=== PATIENT | female | born 1950 | race Caucasian/White ===

== ENCOUNTER 2020-10-04 13:44 | Inpatient (IN) | payer OTHER ==
[~2020-10-04] VITALS: Ht 170.2 cm; Wt 96.0 kg
[2020-10-04] MEDS ORDERED: ETOMIDATE (2MG/ML) 20ML VIAL IV ONE ×2 (14:35→14:45)
[2020-10-04] MEDS ORDERED: SUCCINYLCHOLINE CHLORIDE 20 MG/ML 10ML VIAL IV ONE ×2 (14:36→14:45)
[2020-10-04] MEDS ORDERED: cefTRIAXone 1GM/50ML D5W 50 ML IV ONE (14:45)
[2020-10-04] MEDS ORDERED: DexAMETHasone SOD PHOS 10MG/1ML VIAL INJ IV ONE (14:45)
[2020-10-04] MEDS: MIDAZOLAM DRIP 50 mg/50mL 50 ML IV SCH (15:06)
[2020-10-04 15:35] LABS: Albumin 2.3 g/dL (3.4-5.0); Anion Gap 15 (5-15); Blood Urea Nitrogen 33 mg/dL (7-18); Calcium 8.4 mg/dL (8.5-10.1); Carbon Dioxide 16 mmol/L (21-32); Chloride 110 mmol/L (98-107); Sodium 141 mmol/L (136-145)
[2020-10-04] MEDS ORDERED: NOREPINEPHRINE 8 MG/250ML KIT 250 ML IV ONE (15:37)
[2020-10-04 15:40] LABS: Alanine Aminotransferase 48 U/L (13-56); Alkaline Phosphatase 162 U/L (45-117); Aspartate Aminotransferase 49 U/L (15-37); BUN/Creatinine Ratio 12.7; Bilirubin, Total 0.8 mg/dL (0.2-1.0); GFR African American 24 mL/min; GFR Non-African American 20 mL/min; Total Protein 7.3 g/dL (6.4-8.2)
[2020-10-04 15:41] LABS: Lactic Acid w/Reflex 9.4 mmol/L (0.4-2.0)
[2020-10-04 15:53] LABS: CRP High Sensitivity 15.7 mg/dL (< 0.3)
[2020-10-04 16:01] LABS: Glucose 402 mg/dL (74-106)
[2020-10-04] MEDS: NOREPINEPHRINE 8 MG/250ML KIT 250 ML IV SCH (16:16)
[2020-10-04 17:19] LABS: Basophils # (auto) 0 10 ^3/uL (0-0.2); Eosinophils # (auto) 0 10 ^3/uL (0-0.8); Eosinophils % (auto) 0.1 % (0.0-7.0); Hemoglobin 13.5 g/dL (12.2-16.2); Mean Corpuscular Volume 103.2 fL (80.0-100.0)
[2020-10-04 17:20] LABS: Basophils % (auto) 0.3 % (0.0-2.0); Hematocrit 41.8 % (36.0-46.0); Lymphocytes # (auto) 1.2 10 ^3/uL (0.4-5.4); Lymphocytes % (auto) 8.6 % (10.0-50.0); Mean Corpuscular Hemoglobin 33.2 pg (28.0-32.0); Mean Corpuscular Hgb Conc. 32.2 g/dL (32.0-36.0); Monocytes # (auto) 0.4 10 ^3/uL (0-1.3); Neutrophils # (auto) 11.8 10 ^3/uL (1.6-8.6); Nucleated Red Blood Cells % 4.5 %; Red Blood Cells 4.05 10^6/uL (4.0-5.20); Red Cell Distribution Width 16.5 % (11.8-14.3); White Blood Cell 13.4 10^3/uL (4.4-10.8)
[2020-10-04] MEDS ORDERED: INSULIN LANTUS (GLARGINE) 1 /0.01ml (100units/ml) SC ONE (17:45)
[2020-10-04] MEDS ORDERED: MORPHINE SULFATE INJECTION 2 MG/ML SYRG IV PRN ×3 (17:45→22:30)
[2020-10-04] MEDS ORDERED: NITROGLYCERIN 0.4 MG SL TAB SL PRN ×2 (17:45→22:30)
[2020-10-04] MEDS ORDERED: CHOL20007 PO (18:36)
[2020-10-04] MEDS ORDERED: LOSA-39 PO (18:36)
[2020-10-04] MEDS ORDERED: METH5T PO (18:36)
[2020-10-04] MEDS ORDERED: NYS15TP TOP (18:36)
[2020-10-04] MEDS ORDERED: NAP500T PO (18:36)
[2020-10-04] MEDS ORDERED: ASPI81CH49 PO (18:36)
[2020-10-04] MEDS ORDERED: ASCO500T11 PO (18:36)
[2020-10-04] MEDS ORDERED: ARIP5TAB15 PO (18:36)
[2020-10-04] MEDS ORDERED: FERR325T20 PO (18:36)
[2020-10-04] MEDS ORDERED: METO-289 PO (18:36)
[2020-10-04] MEDS ORDERED: DONETAB6 PO (18:36)
[2020-10-04] MEDS ORDERED: TOLT1CAP29 PO (18:36)
[2020-10-04] MEDS ORDERED: GLAT20KI SC (18:36)
[2020-10-04] MEDS ORDERED: VORT1TAB3 PO (18:36)
[2020-10-04 18:45] VITALS: BP 114/64
[2020-10-04 22:30] VITALS: BP 131/71
[2020-10-04] MEDS ORDERED: ACETAMINOPHEN 500 MG TAB PO PRN (22:30)
[2020-10-04] MEDS ORDERED: ALUM & MAG HYDROX-SIMETH LIQ(MAALOX) 30 ML PO PRN (22:30)
[2020-10-04] MEDS ORDERED: PIPERACILLIN-TAZOB 3.375GM 100 ML IV ONE (22:30)
[2020-10-04] MEDS ORDERED: LORazepam 0.5 MG TAB PO PRN (22:30)
[2020-10-04] MEDS ORDERED: ALBUTEROL SULF HFA 90MCG INH 200DOSE IN PRN (22:30)
[2020-10-04] MEDS ORDERED: REMDESIVIR PER PHARMACY 0 ML IV SCH (22:30)
[2020-10-04] MEDS: SODIUM CHLORIDE 0.9% 1,000 ML IV SCH (22:30)
[2020-10-04] MEDS ORDERED: VANCOMYCIN PER PHARMACY 0 MG IV SCH (22:30)
[2020-10-04] MEDS ORDERED: DEXTROSE (50%) 50ML SYRG IV PRN (22:30)
[2020-10-04] MEDS ORDERED: HYDROcodone-ACET 5/325MG TAB PO PRN (22:30)
[2020-10-04] MEDS ORDERED: ENOXAPARIN SOD 100 MG/1 ML SYRINGE SC ONE (22:30)
[2020-10-04] MEDS ORDERED: FUROSEMIDE 20 MG/2 ML VIAL IV ONE (22:30)
[2020-10-04] MEDS ORDERED: DOCUSATE SOD 100 MG CAP PO PRN (22:30)
[2020-10-04] MEDS ORDERED: ONDANSETRON HCL 4 MG/2 ML VIAL IV PRN (22:30)
[2020-10-04] MEDS ORDERED: VANCOMYCIN 1GM/250ML 250 ML IV ONE (23:00)
[2020-10-04 23:26] LABS: Basophils # (auto) 0 10 ^3/uL (0-0.2); Basophils % (auto) 0.4 % (0.0-2.0); Eosinophils # (auto) 0 10 ^3/uL (0-0.8); Hematocrit 39.7 % (36.0-46.0); Hemoglobin 13.2 g/dL (12.2-16.2); Lymphocytes % (auto) 8.1 % (10.0-50.0); Mean Corpuscular Hemoglobin 33.2 pg (28.0-32.0); Mean Corpuscular Hgb Conc. 33.1 g/dL (32.0-36.0); Mean Corpuscular Volume 100.2 fL (80.0-100.0); Monocytes # (auto) 0.4 10 ^3/uL (0-1.3); Monocytes % (auto) 3.5 % (0.0-12.0); Neutrophils # (auto) 11.1 10 ^3/uL (1.6-8.6); Nucleated Red Blood Cells % 2.1 %; Red Blood Cells 3.96 10^6/uL (4.0-5.20); Red Cell Distribution Width 16.6 % (11.8-14.3); White Blood Cell 12.6 10^3/uL (4.4-10.8)
[2020-10-04] MEDS ORDERED: FUROSEMIDE 40 MG/4 ML VIAL ONE (23:33)
[2020-10-04 23:44] LABS: Albumin 2.3 g/dL (3.4-5.0); Calcium 8.1 mg/dL (8.5-10.1); Magnesium 2.7 mg/dL (1.6-2.6); Potassium 3.7 mmol/L (3.5-5.1)
[2020-10-04 23:49] LABS: Cholesterol 125 mg/dL (< 200); HDL Cholesterol 31 mg/dL (40-59); LDL Cholesterol 83 mg/dL (< 100); Triglycerides 163 mg/dL (< 150)
[2020-10-04 23:53] LABS: Bilirubin, Total 0.5 mg/dL (0.2-1.0); CRP High Sensitivity 16.5 mg/dL (< 0.3); Total Protein 7.1 g/dL (6.4-8.2)
[2020-10-05] MEDS ORDERED: PIPERACILLIN-TAZOB 3.375GM 100 ML IV SCH
[2020-10-05 02:00] VITALS: BP 130/73
[2020-10-05] MEDS ORDERED: PIPERACILLIN-TAZOB 2.25GM 50 ML IV SCH (02:00)
[2020-10-05 06:08] VITALS: BP 166/90
[2020-10-05] MEDS: BUDESONIDE (INHALATION) 180 MCG IH IN SCH ×2 (06:47→22:00)
[2020-10-05] MEDS ORDERED: FUROSEMIDE 40 MG/4 ML VIAL ONE (06:49)
[2020-10-05] MEDS: FUROSEMIDE 20 MG/2 ML VIAL IV SCH ×2 (06:56→18:17)
[2020-10-05] MEDS: FERROUS SULFATE 300 MG/5 ML ORAL LIQ PO SCH ×3 (06:56→21:52)
[2020-10-05] MEDS: ACCU-CHEK COMFORT CURVE STRIP VI SCH ×4 (07:00→21:57)
[2020-10-05] MEDS: InsuLIN REG 1unit/0.01ml Soln (100units/ml) SC SCH ×4 (07:00→22:22)
[2020-10-05] MEDS: TOLTERODINE TARTRATE 1 MG TAB PO SCH (07:00)
[2020-10-05 08:23] LABS: Basophils # (auto) 0 10 ^3/uL (0-0.2); Basophils % (auto) 0.1 % (0.0-2.0); Eosinophils # (auto) 0 10 ^3/uL (0-0.8); Hematocrit 37.9 % (36.0-46.0); Hemoglobin 12.8 g/dL (12.2-16.2); Lymphocytes % (auto) 8.3 % (10.0-50.0); Mean Corpuscular Hemoglobin 33.7 pg (28.0-32.0); Mean Corpuscular Hgb Conc. 33.8 g/dL (32.0-36.0); Monocytes # (auto) 0.8 10 ^3/uL (0-1.3); Monocytes % (auto) 6.7 % (0.0-12.0); Neutrophils % (auto) 84.9 % (37.0-80.0); Nucleated Red Blood Cells % 0.6 %; Red Blood Cells 3.79 10^6/uL (4.0-5.20); White Blood Cell 11.7 10^3/uL (4.4-10.8)
[2020-10-05 08:43] LABS: INR 1.13 (0.9-1.15); Partial Thromboplastin Time 26.3 sec (23.0-31.2)
[2020-10-05 08:49] LABS: Potassium 3.4 mmol/L (3.5-5.1)
[2020-10-05 09:00] LABS: Albumin 2.3 g/dL (3.4-5.0); BUN/Creatinine Ratio 17.7; Bilirubin, Total 0.5 mg/dL (0.2-1.0); Calcium 8.1 mg/dL (8.5-10.1); Magnesium 2.5 mg/dL (1.6-2.6); Phosphorus 5.8 mg/dL (2.5-4.90)
[2020-10-05] MEDS: DexAMETHasone SOD PHOS 10MG/1ML VIAL INJ IV SCH (09:46)
[2020-10-05] MEDS: CITALOPRAM HYDROBR 20 MG TAB PO SCH (09:47)
[2020-10-05] MEDS: ASPirin 81 mg TAB PO SCH (09:47)
[2020-10-05] MEDS: LOSARTAN POTASSIUM 50 MG TAB PO SCH (09:47)
[2020-10-05] MEDS: ZINC SULFATE 220mg CAP or TAB PO SCH (09:47)
[2020-10-05] MEDS: METOPROLOL SUCCINATE XL 50 MG TAB PO SCH (09:48)
[2020-10-05] MEDS: POTASSIUM CHL 10 Meq TABLET PO SCH (09:48)
[2020-10-05] MEDS: methIMAzole 5 MG TAB PO SCH ×2 (09:48→20:53)
[2020-10-05] MEDS: CHOLECALCIFEROL (VITD3) 2,000 UNIT CAP/TAB PO SCH (09:49)
[2020-10-05] MEDS: ASCORBIC ACID 1,000 MG TAB PO SCH (09:49)
[2020-10-05] MEDS: ENOXAPARIN SOD 100 MG/1 ML SYRINGE SC SCH ×2 (09:49→21:53)
[2020-10-05] MEDS ORDERED: VANCOMYCIN 1GM/250ML 250 ML IV ONE (11:00)
[2020-10-05] MEDS: PIPERACILLIN-TAZOB 2.25GM 50 ML IV SCH ×2 (12:00→18:17)
[2020-10-05 13:19] VITALS: BP 134/75
[2020-10-05] MEDS: NOREPINEPHRINE 8 MG/250ML KIT 250 ML IV SCH (14:28)
[2020-10-05] MEDS: MIDAZOLAM DRIP 50 mg/50mL 50 ML IV SCH (14:28)
[2020-10-05] MEDS: SODIUM CHLORIDE 0.9% 1,000 ML IV SCH (18:17)
[2020-10-05 18:23] VITALS: BP 147/91
[2020-10-05] MEDS: QUEtiapine FUMARATE 25 MG TAB PO SCH (20:53)
[2020-10-05] MEDS: DONEPEZIL HYDROCHLORIDE 5 MG TAB PO SCH (21:54)
[2020-10-05] MEDS: ATORVASTATIN 20 MG TAB PO SCH (21:54)
[2020-10-05 22:28] VITALS: BP 137/73
[2020-10-06 02:24] VITALS: BP 127/64
[2020-10-06] MEDS: InsuLIN REG 1unit/0.01ml Soln (100units/ml) SC SCH ×4 (06:49→21:56)
[2020-10-06] MEDS: ACCU-CHEK COMFORT CURVE STRIP VI SCH ×4 (07:02→21:56)
[2020-10-06] MEDS: FERROUS SULFATE 300 MG/5 ML ORAL LIQ PO SCH ×3 (07:06→20:37)
[2020-10-06] MEDS: PIPERACILLIN-TAZOB 2.25GM 50 ML IV SCH ×4 (07:07→20:16)
[2020-10-06 07:22] VITALS: BP 124/79
[2020-10-06] MEDS: ASCORBIC ACID 1,000 MG TAB PO SCH (09:13)
[2020-10-06] MEDS: LOSARTAN POTASSIUM 50 MG TAB PO SCH (09:13)
[2020-10-06] MEDS: ZINC SULFATE 220mg CAP or TAB PO SCH (09:14)
[2020-10-06] MEDS: METOPROLOL SUCCINATE XL 50 MG TAB PO SCH ×2 (09:14→09:52)
[2020-10-06] MEDS: CITALOPRAM HYDROBR 20 MG TAB PO SCH (09:15)
[2020-10-06] MEDS: ASPirin 81 mg TAB PO SCH (09:15)
[2020-10-06] MEDS: POTASSIUM CHL 10 Meq TABLET PO SCH (09:15)
[2020-10-06] MEDS: ENOXAPARIN SOD 100 MG/1 ML SYRINGE SC SCH ×2 (09:16→20:37)
[2020-10-06] MEDS: methIMAzole 5 MG TAB PO SCH ×3 (09:16→20:15)
[2020-10-06] MEDS: DexAMETHasone SOD PHOS 10MG/1ML VIAL INJ IV SCH (09:16)
[2020-10-06] MEDS: CHOLECALCIFEROL (VITD3) 2,000 UNIT CAP/TAB PO SCH (09:18)
[2020-10-06 09:34] LABS: Basophils # (auto) 0 10 ^3/uL (0-0.2); Eosinophils # (auto) 0 10 ^3/uL (0-0.8); Hemoglobin 13.1 g/dL (12.2-16.2); Lymphocytes % (auto) 8.7 % (10.0-50.0); Mean Corpuscular Hemoglobin 32.9 pg (28.0-32.0); Mean Corpuscular Hgb Conc. 32.7 g/dL (32.0-36.0); Mean Corpuscular Volume 100.5 fL (80.0-100.0); Monocytes # (auto) 1.1 10 ^3/uL (0-1.3); Monocytes % (auto) 9.8 % (0.0-12.0); Neutrophils # (auto) 8.9 10 ^3/uL (1.6-8.6); Neutrophils % (auto) 81.5 % (37.0-80.0); Nucleated Red Blood Cells % 0.3 %; Red Blood Cells 3.99 10^6/uL (4.0-5.20); Red Cell Distribution Width 16.5 % (11.8-14.3)
[2020-10-06] MEDS: FUROSEMIDE 40 MG/4 ML VIAL IV SCH ×2 (09:43→20:16)
[2020-10-06] MEDS: TOLTERODINE TARTRATE 1 MG TAB PO SCH (09:51)
[2020-10-06] MEDS: BUDESONIDE (INHALATION) 180 MCG IH IN SCH ×2 (10:31→22:00)
[2020-10-06 11:06] LABS: Potassium 3.1 mmol/L (3.5-5.1)
[2020-10-06 11:10] LABS: BUN/Creatinine Ratio 18.5; Calcium 7.4 mg/dL (8.5-10.1)
[2020-10-06 11:38] LABS: Urine Bacteria FEW /hpf (None Seen); Urine Blood TRACE /uL (Negative); Urine Budding Yeast MODERATE /hpf (None Seen); Urine WBC 1 /hpf (0 - 5)
[2020-10-06 12:05] LABS: Albumin 1.2 g/dL (3.4-5.0); Bilirubin, Direct 0.3 mg/dL (0-0.2)
[2020-10-06 12:08] LABS: Bilirubin, Total 0.6 mg/dL (0.2-1.0); Total Protein 6.8 g/dL (6.4-8.2)
[2020-10-06 12:24] LABS: Alcohol, Urine < 3.0 mg/dL (0-10); Amphetamine Screen, Urine NEGATIVE (NEGATIVE); Barbiturate Scree,Urine NEGATIVE (NEGATIVE); Benzodiazephine Screen, Urine POSITIVE (NEGATIVE); Cannabinoid Screen, Urine NEGATIVE (NEGATIVE)
[2020-10-06 12:39] LABS: Cocaine Screen, Urine NEGATIVE (NEGATIVE); Opiate Scree,Urine NEGATIVE (NEGATIVE); Phencyclidine Screen, Urine NEGATIVE (NEGATIVE)
[2020-10-06 13:15] VITALS: BP 121/73
[2020-10-06] MEDS: MIDAZOLAM DRIP 50 mg/50mL 50 ML IV SCH (14:53)
[2020-10-06] MEDS: SODIUM CHLORIDE 0.9% 1,000 ML IV SCH (14:53)
[2020-10-06] MEDS ORDERED: VANCOMYCIN 1GM/250ML 250 ML IV SCH (15:00)
[2020-10-06] MEDS: NOREPINEPHRINE 8 MG/250ML KIT 250 ML IV SCH (16:28)
[2020-10-06 18:15] VITALS: BP 87/57
[2020-10-06] MEDS: fentaNYL Drip 2500mCg/250mlNS 250 ML IV SCH (18:25)
[2020-10-06] MEDS: QUEtiapine FUMARATE 25 MG TAB PO SCH (20:15)
[2020-10-06] MEDS: ATORVASTATIN 20 MG TAB PO SCH (20:37)
[2020-10-06] MEDS: DONEPEZIL HYDROCHLORIDE 5 MG TAB PO SCH (20:37)
[2020-10-06 22:10] VITALS: BP 100/65
[2020-10-07] MEDS: PIPERACILLIN-TAZOB 2.25GM 50 ML IV SCH ×3 (00:52→11:46)
[2020-10-07 02:35] VITALS: BP 99/55
[2020-10-07] MEDS: FUROSEMIDE 40 MG/4 ML VIAL IV SCH ×2 (05:45→18:22)
[2020-10-07] MEDS: FERROUS SULFATE 300 MG/5 ML ORAL LIQ PO SCH ×3 (05:45→22:55)
[2020-10-07] MEDS: ACCU-CHEK COMFORT CURVE STRIP VI SCH ×3 (06:56→18:54)
[2020-10-07] MEDS: InsuLIN REG 1unit/0.01ml Soln (100units/ml) SC SCH ×4 (06:56→18:54)
[2020-10-07 08:19] LABS: Eosinophils # (auto) 0 10 ^3/uL (0-0.8)
[2020-10-07 08:23] LABS: Basophils # (auto) 0.1 10 ^3/uL (0-0.2); Basophils % (auto) 0.6 % (0.0-2.0); Hematocrit 38.2 % (36.0-46.0); Hemoglobin 12.5 g/dL (12.2-16.2); Lymphocytes # (auto) 0.8 10 ^3/uL (0.4-5.4); Lymphocytes % (auto) 6.4 % (10.0-50.0); Mean Corpuscular Hemoglobin 33.5 pg (28.0-32.0); Mean Corpuscular Hgb Conc. 32.8 g/dL (32.0-36.0); Mean Corpuscular Volume 102.2 fL (80.0-100.0); Monocytes # (auto) 1.4 10 ^3/uL (0-1.3); Monocytes % (auto) 10.6 % (0.0-12.0); Neutrophils # (auto) 10.7 10 ^3/uL (1.6-8.6); Neutrophils % (auto) 82.4 % (37.0-80.0); Nucleated Red Blood Cells % 2.3 %; Red Blood Cells 3.74 10^6/uL (4.0-5.20)
[2020-10-07 08:37] LABS: INR 1.22 (0.9-1.15); Partial Thromboplastin Time 32.2 sec (23.0-31.2)
[2020-10-07 08:50] LABS: Potassium 3.7 mmol/L (3.5-5.1)
[2020-10-07] MEDS: CHOLECALCIFEROL (VITD3) 2,000 UNIT CAP/TAB PO SCH (08:55)
[2020-10-07] MEDS: ZINC SULFATE 220mg CAP or TAB PO SCH (08:55)
[2020-10-07] MEDS: ASCORBIC ACID 1,000 MG TAB PO SCH (08:55)
[2020-10-07] MEDS: POTASSIUM CHL 10 Meq TABLET PO SCH (08:56)
[2020-10-07] MEDS: ASPirin 81 mg TAB PO SCH (08:56)
[2020-10-07] MEDS: ENOXAPARIN SOD 100 MG/1 ML SYRINGE SC SCH ×2 (08:57→22:54)
[2020-10-07] MEDS: CITALOPRAM HYDROBR 20 MG TAB PO SCH (08:57)
[2020-10-07] MEDS: DexAMETHasone SOD PHOS 10MG/1ML VIAL INJ IV SCH (08:58)
[2020-10-07 09:03] LABS: Albumin 2.2 g/dL (3.4-5.0); BUN/Creatinine Ratio 16.2; Bilirubin, Total 0.6 mg/dL (0.2-1.0); Magnesium 1.9 mg/dL (1.6-2.6); Phosphorus 5.4 mg/dL (2.5-4.90); Total Protein 6.6 g/dL (6.4-8.2)
[2020-10-07] MEDS: LOSARTAN POTASSIUM 50 MG TAB PO SCH (09:30)
[2020-10-07] MEDS: methIMAzole 5 MG TAB PO SCH (09:30)
[2020-10-07] MEDS: METOPROLOL SUCCINATE XL 50 MG TAB PO SCH (09:31)
[2020-10-07] MEDS: TOLTERODINE TARTRATE 1 MG TAB PO SCH (09:32)
[2020-10-07] MEDS: BUDESONIDE (INHALATION) 180 MCG IH IN SCH ×2 (10:00→22:00)
[2020-10-07] MEDS: SODIUM CHLORIDE 0.9% 1,000 ML IV SCH (10:33)
[2020-10-07] MEDS: LINEZOLID 600MG/300ML 300 ML IV SCH (14:24)
[2020-10-07] MEDS: MIDAZOLAM DRIP 50 mg/50mL 50 ML IV SCH ×2 (15:03→22:00)
[2020-10-07 15:11] VITALS: BP 131/64
[2020-10-07] MEDS: NOREPINEPHRINE 8 MG/250ML KIT 250 ML IV SCH ×2 (16:12→23:00)
[2020-10-07] MEDS: fentaNYL Drip 2500mCg/250mlNS 250 ML IV SCH ×2 (16:36→18:15)
[2020-10-07] MEDS ORDERED: REMDESIVIR PER PHARMACY 0 ML IV SCH ×2 (18:00)
[2020-10-07] MEDS ORDERED: ERGOCALCIFEROL 50,000 UNIT(1.25MG) CAP PO SCH (18:00)
[2020-10-07] MEDS ORDERED: DEXTROSE (50%) 50ML SYRG IV PRN (18:15)
[2020-10-07] MEDS ORDERED: FLUCONAZOLE 200MG/100ML 100 ML IV ONE (18:15)
[2020-10-07] MEDS: CEFEPIME 2 GM in SODIUM CHL 0.9% 50 ML IV SCH (18:31)
[2020-10-07 18:40] VITALS: BP 131/60
[2020-10-07 18:59] LABS: Urine Bacteria FEW /hpf (None Seen); Urine Blood 1+ /uL (Negative); Urine Budding Yeast MODERATE /hpf (None Seen); Urine Specific Gravity 1.012 (1.001-1.035); Urine WBC 2 /hpf (0 - 5)
[2020-10-07 19:00] LABS: Sodium Urine 72 mmol/L (40-220)
[2020-10-07 19:02] LABS: Creatinine, Urine 50 mg/dL (30.0-125.0)
[2020-10-07] MEDS ORDERED: REMDESIVIR 100mg 100 MG in SODIUM CHL 0.9% 230 ML IV ONE (20:30)
[2020-10-07] MEDS: methylPREDNISolone SOD SUCC 40 MG/ML VL IV SCH (22:06)
[2020-10-07] MEDS: diphenhdrAMINE HCL 50 MG/1 ML VL IV SCH (22:06)
[2020-10-07] MEDS: ACETAMINOPHEN 650 mg PER 20.3 mL UD PO SCH (22:18)
[2020-10-07 22:25] VITALS: BP 132/61
[2020-10-07] MEDS: ATORVASTATIN 20 MG TAB PO SCH (22:55)
[2020-10-07] MEDS: DONEPEZIL HYDROCHLORIDE 5 MG TAB PO SCH (22:55)
[2020-10-08] MEDS: ACCU-CHEK COMFORT CURVE STRIP VI SCH ×4 (00:02→17:56)
[2020-10-08] MEDS: InsuLIN REG 1unit/0.01ml Soln (100units/ml) SC SCH ×4 (00:03→17:55)
[2020-10-08] MEDS: TOCILIZUMAB 400 MG in SODIUM CHL 0.9% 80 ML IV SCH ×2 (00:18→10:53)
[2020-10-08 02:10] VITALS: BP 126/62
[2020-10-08] MEDS: LINEZOLID 600MG/300ML 300 ML IV SCH ×2 (02:13→18:10)
[2020-10-08] MEDS: MIDAZOLAM DRIP 50 mg/50mL 50 ML IV SCH (05:00)
[2020-10-08] MEDS: FERROUS SULFATE 300 MG/5 ML ORAL LIQ PO SCH ×2 (06:01→16:00)
[2020-10-08] MEDS: FUROSEMIDE 40 MG/4 ML VIAL IV SCH ×2 (06:01→17:55)
[2020-10-08 06:46] LABS: Magnesium 1.6 mg/dL (1.6-2.6); Potassium 3.7 mmol/L (3.5-5.1)
[2020-10-08 06:52] LABS: White Blood Cell 10.2 10^3/uL (4.4-10.8)
[2020-10-08 06:55] LABS: Hematocrit 34.8 % (36.0-46.0); Hemoglobin 11.3 g/dL (12.2-16.2); Mean Corpuscular Hemoglobin 33.1 pg (28.0-32.0); Mean Corpuscular Hgb Conc. 32.4 g/dL (32.0-36.0); Mean Corpuscular Volume 102.1 fL (80.0-100.0); Red Blood Cells 3.41 10^6/uL (4.0-5.20)
[2020-10-08 06:57] LABS: BUN/Creatinine Ratio 17.1; Bilirubin, Total 0.4 mg/dL (0.2-1.0); CRP High Sensitivity 4.77 mg/dL (< 0.3); Calcium 6.2 mg/dL (8.5-10.1); Phosphorus 3.8 mg/dL (2.5-4.90); Total Protein 6.1 g/dL (6.4-8.2)
[2020-10-08 07:02] LABS: Band Neutrophils % (manual) 0; Basophils % (manual) 0 (0.0-2.0); Blast Cells 0; Eosinophils % (manual) 0 (0-7); Promyelocytes % 0; Reactive Lymphocytes 0
[2020-10-08 07:15] VITALS: BP 122/50
[2020-10-08 07:31] LABS: Lymphocytes % (manual) 7 (10.0-50.0); Metamyelocytes % 2; Monocytes % (manual) 6 (0-12); Myelocytes % 1
[2020-10-08] MEDS ORDERED: CALCIUM GLUC 4.65meq/50ml D5AE 50 ML IV ONE (08:30)
[2020-10-08] MEDS: CHOLECALCIFEROL (VITD3) 2,000 UNIT CAP/TAB PO SCH (10:00)
[2020-10-08] MEDS: LOSARTAN POTASSIUM 50 MG TAB PO SCH (10:00)
[2020-10-08] MEDS: CITALOPRAM HYDROBR 20 MG TAB PO SCH (10:00)
[2020-10-08] MEDS: PANTOPRAZOLE 40 MG/10 ML VIAL INJ IV SCH (10:00)
[2020-10-08] MEDS: METOPROLOL SUCCINATE XL 50 MG TAB PO SCH (10:00)
[2020-10-08] MEDS: POTASSIUM CHL 10 Meq TABLET PO SCH (10:00)
[2020-10-08] MEDS: ASPirin 81 mg TAB PO SCH (10:00)
[2020-10-08] MEDS: ENOXAPARIN SOD 100 MG/1 ML SYRINGE SC SCH (10:15)
[2020-10-08] MEDS: diphenhdrAMINE HCL 50 MG/1 ML VL IV SCH (10:46)
[2020-10-08] MEDS: DexAMETHasone SOD PHOS 10MG/1ML VIAL INJ IV SCH (10:46)
[2020-10-08] MEDS: methylPREDNISolone SOD SUCC 40 MG/ML VL IV SCH (10:46)
[2020-10-08] MEDS: ACETAMINOPHEN 650 mg PER 20.3 mL UD PO SCH (10:46)
[2020-10-08] MEDS: ZINC SULFATE 220mg CAP or TAB PO SCH (10:47)
[2020-10-08] MEDS: ASCORBIC ACID 1,000 MG TAB PO SCH (10:47)
[2020-10-08] MEDS: BUDESONIDE (INHALATION) 180 MCG IH IN SCH (10:53)
[2020-10-08 11:09] VITALS: BP 121/57
[2020-10-08 15:21] VITALS: BP 122/63
[2020-10-08] MEDS: FLUCONAZOLE 200MG/100ML 100 ML IV SCH (15:42)
[2020-10-08] MEDS: DOXYCYCLINE 100MG/250ML 250 ML IV SCH ×2 (15:59→23:59)
[2020-10-08] MEDS: MAGNESIUM SULFATE 1GM/100ML 100 ML IV SCH ×2 (16:23→19:14)
[2020-10-08] MEDS: REMDESIVIR 100mg 50 MG in SODIUM CHL 0.9% 240 ML IV SCH (17:54)
[2020-10-08] MEDS: CEFEPIME 2 GM in SODIUM CHL 0.9% 50 ML IV SCH (18:30)
[2020-10-08 18:40] VITALS: BP 125/61
[2020-10-08] MEDS ORDERED: MAGNESIUM SULFATE 1GM/100ML 100 ML IV ONE (19:11)
[2020-10-08 22:07] VITALS: BP 115/57
[2020-10-09] MEDS: ENOXAPARIN SOD 100 MG/1 ML SYRINGE SC SCH ×3 (00:02→22:36)
[2020-10-09] MEDS: ATORVASTATIN 20 MG TAB PO SCH ×2 (00:02→22:36)
[2020-10-09] MEDS: LINEZOLID 600MG/300ML 300 ML IV SCH ×2 (02:03→14:00)
[2020-10-09 02:05] VITALS: BP 101/53
[2020-10-09] MEDS: ACCU-CHEK COMFORT CURVE STRIP VI SCH ×4 (06:06→18:03)
[2020-10-09] MEDS: InsuLIN REG 1unit/0.01ml Soln (100units/ml) SC SCH ×4 (06:07→18:05)
[2020-10-09] MEDS: FERROUS SULFATE 300 MG/5 ML ORAL LIQ PO SCH ×4 (06:13→22:00)
[2020-10-09] MEDS: FUROSEMIDE 40 MG/4 ML VIAL IV SCH ×2 (06:13→18:21)
[2020-10-09 07:00] LABS: Hematocrit 29.9 % (36.0-46.0); Hemoglobin 9.9 g/dL (12.2-16.2); Mean Corpuscular Hemoglobin 33.5 pg (28.0-32.0); Mean Corpuscular Hgb Conc. 33.2 g/dL (32.0-36.0); Red Blood Cells 2.96 10^6/uL (4.0-5.20); Red Cell Distribution Width 16.7 % (11.8-14.3); White Blood Cell 13.2 10^3/uL (4.4-10.8)
[2020-10-09 07:19] LABS: Basophils % (manual) 0 (0.0-2.0); Blast Cells 0; Metamyelocytes % 0; Promyelocytes % 0; Reactive Lymphocytes 0
[2020-10-09 07:25] VITALS: BP 117/65
[2020-10-09 07:57] LABS: Potassium 3.2 mmol/L (3.5-5.1)
[2020-10-09 08:02] LABS: BUN/Creatinine Ratio 16.7; Bilirubin, Total 0.4 mg/dL (0.2-1.0); Total Protein 5.6 g/dL (6.4-8.2)
[2020-10-09 08:36] LABS: Calcium 5.9 mg/dL (8.5-10.1)
[2020-10-09] MEDS: POTASSIUM CHL 20MEQ/100ML 100 ML IV SCH ×3 (09:45→13:45)
[2020-10-09] MEDS: PANTOPRAZOLE 40 MG/10 ML VIAL INJ IV SCH (10:00)
[2020-10-09] MEDS: POTASSIUM CHL 10 Meq TABLET PO SCH (10:00)
[2020-10-09] MEDS: DOXYCYCLINE 100MG/250ML 250 ML IV SCH ×2 (10:00→22:00)
[2020-10-09] MEDS: LOSARTAN POTASSIUM 50 MG TAB PO SCH (10:00)
[2020-10-09] MEDS: CITALOPRAM HYDROBR 20 MG TAB PO SCH (10:00)
[2020-10-09] MEDS: METOPROLOL SUCCINATE XL 50 MG TAB PO SCH (10:00)
[2020-10-09] MEDS: DexAMETHasone SOD PHOS 10MG/1ML VIAL INJ IV SCH (10:25)
[2020-10-09] MEDS: CHOLECALCIFEROL (VITD3) 2,000 UNIT CAP/TAB PO SCH (10:25)
[2020-10-09] MEDS: ASCORBIC ACID 1,000 MG TAB PO SCH (10:25)
[2020-10-09] MEDS: ZINC SULFATE 220mg CAP or TAB PO SCH (10:26)
[2020-10-09] MEDS: ASPirin 81 mg TAB PO SCH (10:26)
[2020-10-09 11:41] LABS: Band Neutrophils % (manual) 20; Eosinophils % (manual) 1 (0-7); Lymphocytes % (manual) 10 (10.0-50.0); Monocytes % (manual) 1 (0-12); Myelocytes % 10
[2020-10-09] MEDS: FLUCONAZOLE 200MG/100ML 100 ML IV SCH (11:43)
[2020-10-09 13:53] VITALS: BP 114/45
[2020-10-09] MEDS: MIDAZOLAM DRIP 50 mg/50mL 50 ML IV SCH ×2 (14:45→22:37)
[2020-10-09] MEDS: REMDESIVIR 100mg 50 MG in SODIUM CHL 0.9% 240 ML IV SCH (15:00)
[2020-10-09] MEDS: NOREPINEPHRINE 8 MG/250ML KIT 250 ML IV SCH (16:00)
[2020-10-09 18:45] VITALS: BP 107/33
[2020-10-09] MEDS: CEFEPIME 2 GM in SODIUM CHL 0.9% 50 ML IV SCH (21:33)
[2020-10-09 21:55] VITALS: BP 100/44
[2020-10-09] MEDS: DONEPEZIL HYDROCHLORIDE 5 MG TAB PO SCH ×2 (22:37)
[2020-10-09 23:00] VITALS: BP 110/44
[2020-10-10] VITALS (64 sets, daily range): BP systolic 76–131; BP diastolic 42–78
[2020-10-10] MEDS ORDERED: NOREPINEPHRINE 8 MG/250ML KIT 250 ML IV ONE ×2 (00:17→11:46)
[2020-10-10] MEDS ORDERED: fentaNYL Drip 2500mCg/250mlNS 250 ML IV ONE (00:37)
[2020-10-10] MEDS ORDERED: CALCIUM CHL 100MG/ML 1,000 MG in D5W 5% 100 ML IV ONE (00:45)
[2020-10-10] MEDS ORDERED: POTASSIUM CHL 20MEQ/100ML 100 ML IV ONE (00:45)
[2020-10-10] MEDS ORDERED: MIDAZOLAM DRIP 50 mg/50mL 50 ML IV ONE ×3 (02:19→08:49)
[2020-10-10] MEDS: LINEZOLID 600MG/300ML 300 ML IV SCH ×2 (02:21→14:15)
[2020-10-10] MEDS: MIDAZOLAM DRIP 50 mg/50mL 50 ML IV SCH (02:23)
[2020-10-10] MEDS ORDERED: CALCIUM CHLOR(10%) 100MG/ML 10ML SYRINGE IV ONE ×2 (04:00→04:02)
[2020-10-10] MEDS ORDERED: FUROSEMIDE 40 MG/4 ML VIAL ONE (05:16)
[2020-10-10] MEDS: ACCU-CHEK COMFORT CURVE STRIP VI SCH ×4 (05:29→18:49)
[2020-10-10] MEDS: FUROSEMIDE 40 MG/4 ML VIAL IV SCH ×2 (05:31→18:49)
[2020-10-10] MEDS: InsuLIN REG 1unit/0.01ml Soln (100units/ml) SC SCH ×4 (05:37→18:49)
[2020-10-10 06:56] LABS: Red Cell Distribution Width 16.8 % (11.8-14.3)
[2020-10-10 06:59] LABS: Hematocrit 27.1 % (36.0-46.0); Mean Corpuscular Hemoglobin 33.9 pg (28.0-32.0); Mean Corpuscular Volume 102.6 fL (80.0-100.0); Red Blood Cells 2.64 10^6/uL (4.0-5.20); White Blood Cell 14.9 10^3/uL (4.4-10.8)
[2020-10-10] MEDS ORDERED: INSULIN LANTUS (GLARGINE) 1 /0.01ml (100units/ml) SC SCH ×2 (07:00→22:00)
[2020-10-10 07:20] LABS: Potassium 4.5 mmol/L (3.5-5.1)
[2020-10-10 07:21] LABS: INR 1.27 (0.9-1.15); Partial Thromboplastin Time 37.4 sec (23.0-31.2)
[2020-10-10 07:25] LABS: Basophils % (manual) 0 (0.0-2.0); Blast Cells 0; Eosinophils % (manual) 0 (0-7); Myelocytes % 0; Promyelocytes % 0; Reactive Lymphocytes 0
[2020-10-10 07:39] LABS: BUN/Creatinine Ratio 18.1; Bilirubin, Total 0.4 mg/dL (0.2-1.0); Magnesium 1.8 mg/dL (1.6-2.6); Phosphorus 3.5 mg/dL (2.5-4.90); Total Protein 5.3 g/dL (6.4-8.2)
[2020-10-10 09:13] LABS: Band Neutrophils % (manual) 3; Lymphocytes % (manual) 9 (10.0-50.0); Metamyelocytes % 2; Monocytes % (manual) 7 (0-12)
[2020-10-10] MEDS ORDERED: MIDAZOLAM DRIP 50 mg/50mL 50 ML IV SCH (10:00)
[2020-10-10] MEDS ORDERED: INSULIN LISPRO (HUMAN) 100 UNITS/ML ML SC ONE (11:45)
[2020-10-10] MEDS: CHOLECALCIFEROL (VITD3) 2,000 UNIT CAP/TAB PO SCH (12:00)
[2020-10-10] MEDS: DexAMETHasone SOD PHOS 10MG/1ML VIAL INJ IV SCH (12:00)
[2020-10-10] MEDS: ASPirin 81 mg TAB PO SCH (12:00)
[2020-10-10] MEDS: POTASSIUM CHL 10 Meq TABLET PO SCH (12:00)
[2020-10-10] MEDS: PANTOPRAZOLE 40 MG/10 ML VIAL INJ IV SCH (12:00)
[2020-10-10] MEDS: ZINC SULFATE 220mg CAP or TAB PO SCH (12:00)
[2020-10-10] MEDS: FLUCONAZOLE 200MG/100ML 100 ML IV SCH (12:00)
[2020-10-10] MEDS: ASCORBIC ACID 1,000 MG TAB PO SCH (12:00)
[2020-10-10] MEDS: METOPROLOL SUCCINATE XL 50 MG TAB PO SCH (12:00)
[2020-10-10] MEDS: LOSARTAN POTASSIUM 50 MG TAB PO SCH (12:00)
[2020-10-10] MEDS: ENOXAPARIN SOD 100 MG/1 ML SYRINGE SC SCH (12:00)
[2020-10-10] MEDS: CITALOPRAM HYDROBR 20 MG TAB PO SCH (12:00)
[2020-10-10] MEDS: DOXYCYCLINE 100MG/250ML 250 ML IV SCH ×2 (13:12→22:00)
[2020-10-10] MEDS: NOREPINEPHRINE 8 MG/250ML KIT 250 ML IV SCH (13:14)
[2020-10-10] MEDS: FERROUS SULFATE 300 MG/5 ML ORAL LIQ PO SCH ×3 (13:17→22:00)
[2020-10-10 13:33] LABS: Calcium 6.7 mg/dL (8.5-10.1); Potassium 4.6 mmol/L (3.5-5.1)
[2020-10-10 13:36] LABS: BUN/Creatinine Ratio 19.1
[2020-10-10] MEDS: REMDESIVIR 100mg 50 MG in SODIUM CHL 0.9% 240 ML IV SCH (15:45)
[2020-10-10] MEDS: fentaNYL Drip 2500mCg/250mlNS 250 ML IV SCH ×2 (16:53)
[2020-10-10] MEDS: CEFEPIME 2 GM in SODIUM CHL 0.9% 50 ML IV SCH (20:00)
[2020-10-10] MEDS: DONEPEZIL HYDROCHLORIDE 5 MG TAB PO SCH (22:00)
[2020-10-10] MEDS: ATORVASTATIN 20 MG TAB PO SCH (22:00)
[2020-10-10] MEDS ORDERED: PHENYLEPHRINE IV 250 ML IV SCH (23:15)
[2020-10-10] MEDS ORDERED: PHENYLEPHRINE IV 250 ML IV ONE (23:16)
[2020-10-11] VITALS (26 sets, daily range): BP systolic 60–107; BP diastolic 29–67
[2020-10-11] MEDS: ACCU-CHEK COMFORT CURVE STRIP VI SCH ×2 (00:14→05:43)
[2020-10-11] MEDS: InsuLIN REG 1unit/0.01ml Soln (100units/ml) SC SCH ×2 (00:16→05:44)
[2020-10-11] MEDS: LINEZOLID 600MG/300ML 300 ML IV SCH (02:00)
[2020-10-11] MEDS: FUROSEMIDE 40 MG/4 ML VIAL IV SCH (05:42)
[2020-10-11] MEDS ORDERED: NOREPINEPHRINE BITARTRATE 2 ML IV ONE (05:46)
[2020-10-11] MEDS ORDERED: SODIUM BICARBONATE 8.4% INJ 50ML SYRINGE IV ONE (07:44)
[2020-10-11] MEDS ORDERED: EPINEPHrine HCL 1 MG/10 ML SYRG IV ONE (07:44)
[2020-10-11] MEDS ORDERED: VASOPRESSIN 50 UNITS in D5W 5% 247.5 ML IV SCH (08:00)
[2020-10-11] MEDS ORDERED: ENOXAPARIN SOD 100 MG/1 ML SYRINGE SC SCH (10:00)
[2020-10-11] MEDS ORDERED: INSULIN LANTUS (GLARGINE) 1 /0.01ml (100units/ml) SC SCH (22:00)
== END 2020-10-11 07:45 | DRG 870 ==
LOC: EDBD 13:44 → ER 13:44 → TELE 13:45 → ICU WEST 10-10 07:49
PROVIDERS: ADMIT Hospitalist; ATTEND Internal Medicine
PROC: 02H633Z Insertion of Infusion Device into Right Atrium, Percutaneous Approach (ICD-10-PCS; 2020-10-04)
PROC: 5A1955Z Respiratory Ventilation, Greater than 96 Consecutive Hours (ICD-10-PCS; principal; 2020-10-06)
PROC: 0BH17EZ Insertion of Endotracheal Airway into Trachea, Via Natural or Artificial Opening (ICD-10-PCS; 2020-10-06)
PROC: XW033E5 Introduction of Remdesivir Anti-infective into Peripheral Vein, Percutaneous Approach, New Technology Group 5 (ICD-10-PCS; 2020-10-07)
PROC: XW033H5 Introduction of Tocilizumab into Peripheral Vein, Percutaneous Approach, New Technology Group 5 (ICD-10-PCS; 2020-10-07)
PROC: 5A12012 Performance of Cardiac Output, Single, Manual (ICD-10-PCS; 2020-10-11)
DX: A41.89 Other specified sepsis (principal); U07.1 COVID-19; J96.01 Acute respiratory failure with hypoxia; J12.82 Pneumonia due to coronavirus disease 2019; G93.41 Metabolic encephalopathy; N17.0 Acute kidney failure with tubular necrosis; D68.59 Other primary thrombophilia; D89.833 Cytokine release syndrome, grade 3; N39.0 Urinary tract infection, site not specified; F03.90 Unspecified dementia, unspecified severity, without behavioral disturbance, psychotic disturbance, mood disturbance, and anxiety; G35 Multiple sclerosis; E66.01 Morbid (severe) obesity due to excess calories; N39.3 Stress incontinence (female) (male); B37.9 Candidiasis, unspecified; F32.9 Major depressive disorder, single episode, unspecified; D75.89 Other specified diseases of blood and blood-forming organs; E53.8 Deficiency of other specified B group vitamins; M19.90 Unspecified osteoarthritis, unspecified site; D64.9 Anemia, unspecified; E05.90 Thyrotoxicosis, unspecified without thyrotoxic crisis or storm; E78.5 Hyperlipidemia, unspecified; F10.10 Alcohol abuse, uncomplicated; F20.9 Schizophrenia, unspecified; Z79.82 Long term (current) use of aspirin; R65.20 Severe sepsis without septic shock; I46.9 Cardiac arrest, cause unspecified; N18.32 Chronic kidney disease, stage 3b; I12.9 Hypertensive chronic kidney disease with stage 1 through stage 4 chronic kidney disease, or unspecified chronic kidney disease; Z68.35 Body mass index [BMI] 35.0-35.9, adult
CPT/HCPCS: 31500; 36415; 36556; 36600; 71045; 76775; 80048; 80053; 80061; 80076; 80202; 80307; 81001; 82306; 82570; 82728; 82805; 82962; 83036; 83605; 83615; 83735; 83935; 84100; 84300; 84439; 84443; 84480; 84484; 85007; 85025; 85027; 85379; 85610; 85730; 86141; 87040; 87070; 87086; 87088; 87186; 87205; 87426; 93005; 93306; 94002; 94003; 96365; 96375; 99291; G0378; J0330; J0610; J0696; J1100; J1450; J1815; J2250; J2543; J3480; J3490; J7060